=== PATIENT | female | born 1995 | race Caucasian/White ===

== ENCOUNTER 2018-11-12 18:47 | Emergency (ER) | payer OTHER ==
[~2018-11-12] VITALS: Ht 160 cm; Wt 79.4 kg
[2018-11-12 19:16] VITALS: BP_SYST 132
--- NOTE | 2018-11-12 19:16 | NUR ---
Patient to ER bed 04 to gown for evaluation. Side rails up. Report given to YURI Gates.
--- NOTE | 2018-11-12 19:40 | NUR ---
PT AWAKE, ALERT, ORIENTED X4. STATES SHE HAD BEEN HAVING SORE THROAT, FEVER, PAIN WITH SWALLOWING, COUGH, CHILLS, SOMETIMES COULD NOT BREATH PROPERLY. HAD BEEN MEDICATING SELF WITH THERA-FLU WITH LITTLE RELIEF.
--- NOTE | 2018-11-12 19:45 | NUR ---
GINA VALLADARES MEASUREMENT PSYCHOLOGIST at bedside examining patient.
[2018-11-12 20:09] LABS: STREPTOCOCCUS A SCREEN (RAPID) NEGATIVE (NEGATIVE)
[2018-11-12 20:28] LABS: INFLUENZA A&B ANTIGEN SCREEN NEGATIVE FOR A & B (NEGATIVE)
--- NOTE | 2018-11-12 20:34 | NUR ---
Patient given written and verbal discharge instructions and verbalizes understanding. ER [facility] B[employer]ER JACQUELYN discussed with patient the results and treatment provided. Patient in stable condition. ID arm band removed. Rx of PREDNISONE, MORPHINE given. Patient educated on pain management and to follow up with PMD. Pain Scale . Opportunity for questions provided and answered. Medication side effect fact sheet provided.
== END 2018-11-12 20:34 | disposition home or self-care (01) ==
LOC: SED 18:47
DX: J06.9 Acute upper respiratory infection, unspecified (principal); J02.8 Acute pharyngitis due to other specified organisms; B97.89 Other viral agents as the cause of diseases classified elsewhere; R03.0 Elevated blood-pressure reading, without diagnosis of hypertension
CPT/HCPCS: 36415; 86403; 86710; 87081; 99283